=== PATIENT | female | born 1950 | race Caucasian/White ===

== ENCOUNTER 2018-07-09 10:00 | Inpatient (IN) | payer OTHER ==
[~2018-07-09] VITALS: Ht 162.6 cm; Wt 97.5 kg
[2018-07-09] MEDS ORDERED: NEURONTIN300 MG (12:16)
[2018-07-09] MEDS ORDERED: STERILE SALINE126 ML (12:16)
[2018-07-09] MEDS ORDERED: JANUMET 50-1,01 EACH (12:16)
[2018-07-09] MEDS ORDERED: QUINAPRIL HCL20 MG (12:16)
[2018-07-09] MEDS ORDERED: ASPIR 8181 MG (12:17)
[2018-07-09] MEDS ORDERED: SYNTHROID175 MCG (12:17)
[2018-07-16] MEDS ORDERED: INTEGRA PLUS C1 EACH PO (06:49)
[2018-07-16] MEDS ORDERED: OXYC1TAB9 PO (06:49)
[2018-07-16] MEDS ORDERED: BACTRIM DS TAB1 EACH PO (06:49)
[2018-07-16] MEDS ORDERED: XARELTO10 MG PO (06:49)
== END 2018-07-16 16:18 | DRG 470 ==
LOC: O/R 07-14 07:10 → SURG 07-14 07:10 → O/R 07-14 08:00 → SURG 07-14 17:42
PROVIDERS: ADMIT Orthopaedic Surgery Sports Medicine
PROC: 0SRC0J9 Replacement of Right Knee Joint with Synthetic Substitute, Cemented, Open Approach (ICD-10-PCS; principal; 2018-07-14 08:00)
DX: M17.11 Unilateral primary osteoarthritis, right knee (principal); E11.9 Type 2 diabetes mellitus without complications; I10 Essential (primary) hypertension

== ENCOUNTER 2019-06-09 08:00 | Inpatient (IN) | payer OTHER ==
[~2019-06-09] VITALS: Ht 162.6 cm; Wt 97.5 kg
[~2019-06-09 08:00] MED LIST: ASPIR 8181 MG; BACTRIM DS TAB1 EACH PO; INTEGRA PLUS C1 EACH PO; JANUMET 50-1,01 EACH; NEURONTIN300 MG; OXYC1TAB9 PO; QUINAPRIL HCL20 MG; STERILE SALINE126 ML; SYNTHROID175 MCG; XARELTO10 MG PO
[2019-06-10] MEDS ORDERED: ATORVASTATIN CA10 MG PO (12:44)
[2019-06-10] MEDS ORDERED: GLIMEPIRIDE4 M1 PO (12:44)
[2019-06-10] MEDS ORDERED: FENOFIBRATE150 MG PO (12:45)
[2019-06-10] MEDS ORDERED: EVISTA60 MG PO (12:45)
[2019-06-10] MEDS ORDERED: FOLIC PO (12:46)
[2019-06-10] MEDS ORDERED: GABAPEN PO (12:46)
[2019-06-10] MEDS ORDERED: MULTIPLE VITAM1 EACH PO (12:47)
[2019-06-10] MEDS ORDERED: LOSOL PO (12:47)
[2019-06-10] MEDS ORDERED: SYNTHROID50 MCG PO (14:44)
[2019-06-15] MEDS ORDERED: TOPROL XL25 M1 PO (08:26)
[2019-06-15] MEDS ORDERED: LEVOTHYROXINE25 MCG PO (08:26)
[2019-06-15] MEDS ORDERED: VITAMIN C1000 MG PO (08:33)
[2019-06-15] MEDS ORDERED: FOLIC ACID1 MG PO (08:33)
[2019-06-15] MEDS ORDERED: VITAMIN E400 UNI2 PO (08:34)
[2019-06-15] MEDS ORDERED: OMEGA 3-6-9 CO400 MG PO (08:35)
[2019-06-17] MEDS ORDERED: INTEGRA PLUS C1 EACH PO (08:36)
[2019-06-17] MEDS ORDERED: XARELTO10 MG PO (08:36)
[2019-06-17] MEDS ORDERED: OXYC1TAB9 PO (08:36)
== END 2019-06-17 13:15 | DRG 470 ==
LOC: SURG 08:00 → O/R 08:00 → SURH 06-15 04:11 → O/R 06-15 04:11 → SURG 06-15 08:00 → SURH 06-15 11:27 → SURG 06-15 11:45 → SURH 06-17 13:15
PROVIDERS: ADMIT Orthopaedic Surgery Sports Medicine
PROC: 0SRD0J9 Replacement of Left Knee Joint with Synthetic Substitute, Cemented, Open Approach (ICD-10-PCS; principal; 2019-06-15 11:45)
DX: M17.12 Unilateral primary osteoarthritis, left knee (principal); I10 Essential (primary) hypertension; E11.9 Type 2 diabetes mellitus without complications; E03.9 Hypothyroidism, unspecified